=== PATIENT | male | born 1985 | race Caucasian/White ===

== ENCOUNTER 2020-01-01 03:34 | Emergency (ER) | payer BC ==
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
[2020-01-01 03:44] VITALS: BP 151/87; PULSE 96; TEMP 98.3; BMI 30.9
[2020-01-01] MEDS ORDERED: IBUPROFEN 400 MG TABLET (FP) PO ONE (03:50)
[2020-01-01] MEDS ORDERED: IBUPROFEN 600 MG TABLET (FP) PO ONE (03:53)
== END 2020-01-01 05:18 | disposition home or self-care (01) ==
LOC: FER 03:34
DX: S82.852A Displaced trimalleolar fracture of left lower leg, initial encounter for closed fracture (principal)
CPT/HCPCS: 73610-TC-LT-FY; 99283-25